=== PATIENT | female | born 1985 | race Caucasian/White ===

== ENCOUNTER 2016-08-18 10:29 | Inpatient (IN) | payer BC ==
[2016-08-18] VITALS (8 sets, daily range): BP systolic 107–137; RESP 18–20; Ht 175.3 cm; Wt 95.3 kg
[~2016-08-18] VITALS: Ht 175.3 cm; Wt 95.3 kg
[~2016-08-18 10:29] MED LIST: BUPIVACAINE 0.5% PF 10ML EPIDURAL ONE
[2016-08-18] MEDS ORDERED: LIDOCAINE 1% BUFFERED 1 ML SYR INTRADERM PRN (11:20)
[2016-08-18] MEDS ORDERED: OXYTOCIN 15 UNITS/250 ML NS 250 ML IV SCH (11:20)
[2016-08-18] MEDS ORDERED: TERBUTALINE 1 MG/ML VIAL SUBQ PRN (11:20)
[2016-08-18] MEDS ORDERED: ACETAMINOPHEN 325 MG TAB PO PRN (11:20)
[2016-08-18] MEDS ORDERED: METOCLOPRAMIDE 10 MG/2 ML VIAL IV PUSH PRN (11:20)
[2016-08-18] MEDS ORDERED: FAMOTIDINE 20 MG INJ IV PRN (11:20)
[2016-08-18] MEDS ORDERED: ONDANSETRON 4 MG VIAL IV PRN (11:20)
[2016-08-18] MEDS ORDERED: FAMOTIDINE 20 MG TAB PO PRN (11:20)
[2016-08-18] MEDS ORDERED: PENICILLIN G 5 MU in SODIUM CHLORIDE 0.9% 250 ML IV ONE (11:20)
[2016-08-18] MEDS ORDERED: OXYTOCIN 15 UNITS/250 ML NS 15 UNITS in PART FILL PIGGYBACK 1 EA IV SCH (11:20)
[2016-08-18] MEDS ORDERED: LIDOCAINE 1% 30 ML PF INFILTRATE ONE (11:20)
[2016-08-18] MEDS ORDERED: PROMETHAZINE 25 MG/ML VIAL IV PRN (11:20)
[2016-08-18] MEDS ORDERED: MORPHINE 5 MG/1 ML VIAL IV PRN (11:20)
[2016-08-18] MEDS ORDERED: CEFAZOLIN (LD/OB) 100 ML IV PRN (11:20)
[2016-08-18] MEDS ORDERED: ALU/MAG/SIM 30 ML UDC PO PRN (11:20)
[2016-08-18] MEDS: LACT RINGERS 1,000 ML IV SCH ×3 (11:57→19:01)
[2016-08-18] MEDS ORDERED: PENICILLIN G 2.5 MU in SODIUM CHLORIDE 0.9% 100 ML IV SCH (15:20)
[2016-08-18] MEDS ORDERED: LIDOCAINE 1% 30 ML PF ONE (17:40)
[2016-08-18] MEDS ORDERED: ROPIV/FENT 0.2%-2MCG/ML 100 ML EPIDURAL ONE (17:40)
[2016-08-18] MEDS ORDERED: LACT RINGERS 500 ML IV ONE (18:15)
[2016-08-18] MEDS ORDERED: SODIUM CHLORIDE 0.9% 500 ML IV PRN (18:15)
[2016-08-18] MEDS ORDERED: ROPIV/FENT 0.2%-2MCG/ML 100 ML EPIDURAL SCH (18:15)
[2016-08-18] MEDS ORDERED: LACT RINGERS 500 ML IV PRN (18:15)
[2016-08-18] MEDS ORDERED: DERMOPLAST SPRAY TOPICAL PRN (19:55)
[2016-08-18] MEDS ORDERED: TDaP 0.5 ML VIAL IM.VACC ONE (19:55)
[2016-08-18] MEDS ORDERED: ZOLPIDEM 5 MG TAB PO PRN (19:55)
[2016-08-18] MEDS ORDERED: MAG HYDROX 30 ML UDC PO PRN (19:55)
[2016-08-18] MEDS ORDERED: OXYTOCIN 15 UNITS/250 ML NS 250 ML IV ONE (19:55)
[2016-08-18] MEDS ORDERED: MEASLES,MUMPS,RUBELLA VAC SUBQ.VACC ONE (19:55)
[2016-08-18] MEDS ORDERED: ASTRINGENT MED PADS 40'S TOPICAL PRN (19:55)
[2016-08-18] MEDS: MISOPROSTOL 200 MCG TAB PO SCH ×2 (19:55→23:09)
[2016-08-18] MEDS ORDERED: **ONLY ANESTEHSIA MAY ORDER OPIATES WHILE ON EPIDURAL XX SCH (20:00)
[2016-08-18] MEDS: Ibuprofen 600 MG TAB PO SCH (23:10)
[2016-08-19 01:20] VITALS: BP_SYST 109; RESP 20; TEMP 98.2
[2016-08-19] MEDS ORDERED: MISOPROSTOL 100 MCG TAB ONE (03:35)
[2016-08-19 05:25] VITALS: BP_SYST 109; RESP 20; TEMP 97.5
[2016-08-19] MEDS: Ibuprofen 600 MG TAB PO SCH ×4 (05:29→23:13)
[2016-08-19] MEDS: DOCUSATE SOD 100 MG CAP PO SCH (08:09)
[2016-08-19 09:24] VITALS: BP_SYST 112; RESP 16; TEMP 97.3
[2016-08-19 13:36] VITALS: BP_SYST 116; RESP 18; TEMP 97.7
[2016-08-19 17:32] VITALS: BP_SYST 117; RESP 18; TEMP 97.9
[2016-08-20 05:38] VITALS: BP_SYST 117; RESP 18; TEMP 97.5
[2016-08-20] MEDS: Ibuprofen 600 MG TAB PO SCH ×3 (05:39→17:36)
[2016-08-20] MEDS: DOCUSATE SOD 100 MG CAP PO SCH (08:57)
[2016-08-20 16:45] VITALS: BP_SYST 117; RESP 18; TEMP 97.5
[2016-08-20 17:33] VITALS: BP_SYST 134; RESP 18; TEMP 97.9
== END 2016-08-20 18:06 | disposition home or self-care (01) | DRG 775 ==
LOC: LD 10:29 → OB 23:08 → UNDODISIN 08-20 13:45
PROVIDERS: ADMIT Obstetrics & Gynecology Reproductive Endocrinology; ATTEND Obstetrics & Gynecology Reproductive Endocrinology
PROC: 10E0XZZ Delivery of Products of Conception, External Approach (ICD-10-PCS; principal; 2016-08-18)
PROC: 0HQ9XZZ Repair Perineum Skin, External Approach (ICD-10-PCS; 2016-08-18)
DX: O70.0 First degree perineal laceration during delivery (principal); Z37.0 Single live birth; Z3A.38 38 weeks gestation of pregnancy
CPT/HCPCS: 85025